=== PATIENT | female | born 1990 | race Caucasian/White ===

== ENCOUNTER 2016-07-28 20:56 | Emergency (ER) | payer MEDICAID ==
[~2016-07-28] VITALS: Ht 157.5 cm; Wt 60.0 kg
[2016-07-28] MEDS ORDERED: PRENATAL VITAMIN (21:04)
[2016-07-28] MEDS ORDERED: ONDANSETRON 2MG/ML, 2ML ONE (21:19)
[2016-07-28] MEDS ORDERED: ONDANSETRON 2MG/ML, 2ML IVPush ONE (21:30)
[2016-07-28] MEDS ORDERED: FAMOTIDINE 20 MG/2 ML IVP ONE (21:30)
[2016-07-28] MEDS ORDERED: SODIUM CHLORIDE 0.9% 1,000ML IVBOLUS ONE (21:30)
[2016-07-28 21:36] LABS: HEMOGLOBIN 13.2 g/dL (11.7-16.4)
[2016-07-28] MEDS ORDERED: PROMETHAZINE 25 MG/ML, 1ML ONE (21:44)
[2016-07-28] MEDS ORDERED: FAMOTIDINE 20 MG/2 ML ONE (21:46)
[2016-07-28 21:49] LABS: ASPARTATE AMINO TRANSFERASE 12 U/L (15-37); BLOOD UREA NITROGEN 5 mg/dL (7-18)
[2016-07-28] MEDS ORDERED: PROMETHAZINE 25 MG/ML, 1ML IM ONE (22:00)
[2016-07-28] MEDS ORDERED: ACETAMINOPHEN 325 MG TABLET ONE (22:32)
[2016-07-28] MEDS ORDERED: ACETAMINOPHEN 325 MG TABLET PO ONE (23:00)
[2016-07-28] MEDS ORDERED: MORPHINE SULFATE 4 MG/ML, 1ML ONE (23:47)
[2016-07-28 23:57] VITALS: BP 100/62
[2016-07-29] MEDS ORDERED: morphine SULFATE 10 MG/ML, 1ML IVPush ONE
== END 2016-07-29 00:45 | disposition home or self-care (01) ==
LOC: ED 23:54
DX: O99.611 Diseases of the digestive system complicating pregnancy, first trimester (principal); Z3A.09 9 weeks gestation of pregnancy; R11.2 Nausea with vomiting, unspecified
CPT/HCPCS: 36415; 76700; 76801; 80053; 81003; 83690; 84702; 85025; 96361; 96372; 96374; 96375; 99285; J2270; J2405; J2550; J7030; S0028

== ENCOUNTER 2016-10-19 17:56 | Observation (INO) | payer OTHER, MEDICAID ==
[~2016-10-19] VITALS: Ht 157.5 cm; Wt 56.0 kg
[~2016-10-19 17:56] MED LIST: PRENATAL VITAMIN
[2016-10-19] MEDS ORDERED: HYDROcodone/APAP 5/325 TABLET ONE (19:28)
[2016-10-19] MEDS ORDERED: ONDANSETRON ODT 4 MG ONE (19:28)
[2016-10-19] MEDS ORDERED: ONDANSETRON 4 MG TABLET PO ONE (19:30)
[2016-10-19] MEDS ORDERED: HYDROcodone/APAP 5/325 TABLET PO ONE (19:30)
[2016-10-19] MEDS ORDERED: PLEASE ENTER HEIGHT AND WEIGHT MC SCH (20:00)
[2016-10-19 20:09] LABS: BLOOD UREA NITROGEN 5 mg/dL (7-18)
[2016-10-19 20:13] LABS: ASPARTATE AMINO TRANSFERASE 17 U/L (15-37)
[2016-10-19] MEDS ORDERED: KETOROLAC 30 MG/1 ML ONE (20:52)
[2016-10-19] MEDS ORDERED: KETOROLAC 30 MG/1 ML IVPush ONE (21:00)
[2016-10-19] MEDS ORDERED: D5%-LACTATED RINGERS 1,000 ML IV SCH (21:00)
== END 2016-10-19 22:42 | disposition home or self-care (01) ==
LOC: LDOP 17:56 → LDIP 20:46
PROVIDERS: ADMIT Student in an Organized Health Care Education/Training Program; ATTEND Student in an Organized Health Care Education/Training Program
DX: O26.892 Other specified pregnancy related conditions, second trimester (principal); R10.9 Unspecified abdominal pain; M54.9 Dorsalgia, unspecified; Z3A.21 21 weeks gestation of pregnancy
CPT/HCPCS: 36415; 59025; 76770; 76805; 80053; 81001; 85025; 87086; 96361; 96374; 99211; G0378; J1885; Q0162; 96360; 96375; G0463; J7121

== ENCOUNTER → 2016-12-04 | Outpatient (CLI) | payer OTHER, MEDICAID ==
[2016-12-04 15:56] LABS: HEMATOCRIT 35.7 % (34.6-47.8); HEMOGLOBIN 11.6 g/dL (11.7-16.4); WHITE BLOOD COUNT 8.8 x10^3/uL (3.4-10)
== END | disposition home or self-care (01) ==
LOC: LAB 11:44
PROVIDERS: ATTEND Student in an Organized Health Care Education/Training Program
DX: Z34.82 Encounter for supervision of other normal pregnancy, second trimester (principal)
CPT/HCPCS: 36415; 82950; 85025

== ENCOUNTER 2017-02-23 03:42 | Inpatient (IN) | payer OTHER ==
[~2017-02-23] VITALS: Ht 157.5 cm; Wt 61.8 kg
[~2017-02-23 03:42] MED LIST changes: +FERR324T5 PO; +PREN1TAB60 PO
[2017-02-23] MEDS ORDERED: OXYTOCIN 30U/ 0.9% NaCL 500ML 500 ML IV ONE (03:47)
[2017-02-23] MEDS ORDERED: NEWBORN KIT ONE (03:49)
[2017-02-23] MEDS ORDERED: OXYTOCIN 30U/ 0.9% NaCL 500ML 500 ML ONE (03:50)
[2017-02-23] MEDS: LACTATED RINGERS 1,000 ML IV SCH ×4 (03:55→11:24)
[2017-02-23] MEDS ORDERED: FENTANYL PF 100 MCG/2ML ONE (03:58)
[2017-02-23 04:00] VITALS: BP 112/74
[2017-02-23] MEDS ORDERED: ONDANSETRON 2MG/ML, 2ML ONE ×2 (04:00→09:55)
[2017-02-23] MEDS ORDERED: FENTANYL PF 100 MCG/2ML IV PRN (04:00)
[2017-02-23] MEDS ORDERED: FENTANYL PF 100 MCG/2ML IVPush PRN (04:00)
[2017-02-23] MEDS ORDERED: TERBUTALINE 1 MG/ML, 1ML IVPush PRN (04:00)
[2017-02-23] MEDS: ONDANSETRON 2MG/ML, 2ML IVPush PRN ×2 (04:00→09:57)
[2017-02-23 04:50] LABS: HEMATOCRIT 34.1 % (34.6-47.8); HEMOGLOBIN 11.6 g/dL (11.7-16.4); WHITE BLOOD COUNT 9.5 x10^3/uL (3.4-10)
[2017-02-23] MEDS ORDERED: FENTANYL/BUPIV./NS/PF 250 ML EPIDCONT ONE ×2 (05:10→05:25)
[2017-02-23] MEDS ORDERED: LIDOCAINE/PF 1.5%-EPI 1:200K, 30ML ONE (05:10)
[2017-02-23] MEDS ORDERED: FENTANYL/BUPIV./NS/PF 250 ML EPIDCONT SCH (05:32)
[2017-02-23] MEDS ORDERED: LACTATED RINGERS 1,000 ML IVBOLUS PRN (06:00)
[2017-02-23] MEDS ORDERED: OXYTOCIN 30U/ 0.9% NaCL 500ML 500 ML IV PRN (08:57)
[2017-02-23] MEDS ORDERED: OXYTOCIN 30U/ 0.9% NaCL 500ML 500 ML IV SCH (12:07)
[2017-02-23] MEDS ORDERED: METHYLERGONOVINE 0.2 MG/ML IM ONE (12:08)
[2017-02-23] MEDS ORDERED: MISOPROSTOL 200 MCG TABLET PR PRN (12:30)
[2017-02-23] MEDS ORDERED: IBUPROFEN 800 MG TABLET PO PRN (12:30)
[2017-02-23] MEDS ORDERED: ONDANSETRON 2MG/ML, 2ML IV PRN (12:30)
[2017-02-23] MEDS ORDERED: OXYcodone/APAP 5/325MG TABLET PO PRN ×2 (12:30)
[2017-02-23] MEDS ORDERED: GLYCERIN ADULT SUPP PR PRN (12:30)
[2017-02-23] MEDS ORDERED: DOCUSATE 100 MG CAPSULE PO PRN (12:30)
[2017-02-23] MEDS ORDERED: ACETAMINOPHEN 325 MG TABLET PO PRN (12:30)
[2017-02-23] MEDS ORDERED: BISACODYL 10 MG SUPP PR PRN (12:30)
[2017-02-23] MEDS ORDERED: METOCLOPRAMIDE 5 MG/ML, 2ML IV PRN (12:30)
[2017-02-23] MEDS ORDERED: METHYLERGONOVINE 0.2 MG/ML IM PRN (12:30)
[2017-02-23] MEDS ORDERED: IBUPROFEN 600 MG TABLET ONE (13:35)
[2017-02-23] MEDS: IBUPROFEN 600 MG TABLET PO PRN ×2 (13:38→20:40)
[2017-02-23 14:05] VITALS: BP 115/80
[2017-02-23 19:35] LABS: HEMATOCRIT 34.1 % (34.6-47.8); HEMOGLOBIN 11.6 g/dL (11.7-16.4); WHITE BLOOD COUNT 12.7 x10^3/uL (3.4-10)
[2017-02-23 19:58] VITALS: BP 107/67
[2017-02-24 00:30] VITALS: BP 100/55
[2017-02-24] MEDS: IBUPROFEN 600 MG TABLET PO PRN ×2 (05:34→13:39)
[2017-02-24 07:20] VITALS: BP 96/52
[2017-02-24] MEDS ORDERED: PRENATAL VIT/IRON/FA 1 EACH TABLET PO SCH (09:00)
[2017-02-24] MEDS ORDERED: ibupro (12:12)
[2017-02-24] MEDS ORDERED: OXYC-302 PO (12:13)
[2017-02-24] MEDS ORDERED: IBUP-1223 PO (12:13)
== END 2017-02-24 14:41 | disposition home or self-care (01) | DRG 775 ==
LOC: LDOP 03:42 → LDIP 03:55 → 2NW 14:05
PROVIDERS: ADMIT Student in an Organized Health Care Education/Training Program; ATTEND Student in an Organized Health Care Education/Training Program
PROC: 3E0R3BZ Introduction of Anesthetic Agent into Spinal Canal, Percutaneous Approach (ICD-10-PCS; principal; 2017-02-24)
PROC: 10E0XZZ Delivery of Products of Conception, External Approach (ICD-10-PCS; 2017-02-24)
PROC: 00HU33Z Insertion of Infusion Device into Spinal Canal, Percutaneous Approach (ICD-10-PCS; 2017-02-24)
PROC: 10907ZC Drainage of Amniotic Fluid, Therapeutic from Products of Conception, Via Natural or Artificial Opening (ICD-10-PCS; 2017-02-24)
DX: O80 Encounter for full-term uncomplicated delivery (principal); G43.909 Migraine, unspecified, not intractable, without status migrainosus; Z37.0 Single live birth; Z3A.39 39 weeks gestation of pregnancy; Z83.3 Family history of diabetes mellitus; Z82.49 Family history of ischemic heart disease and other diseases of the circulatory system
CPT/HCPCS: 36415; 85025; 86850; 86900; J2405; J3010; J3490; J2210; J2590; J7120

== ENCOUNTER → 2018-04-02 | Outpatient (CLI) | payer OTHER ==
[~2018-04-02] MED LIST changes: +IBUP-1223 PO; +OXYC-302 PO; +ibupro
[2018-04-02 08:34] LABS: BASOPHILS # (AUTO) 0.02 x10^3/uL (0-0.1); BASOPHILS % (AUTO) 0 % (0-1); EOSINOPHILS # (AUTO) 0.03 x10^3/uL (0-0.4); EOSINOPHILS % (AUTO) 0 % (1-7); LYMPHOCYTES # (AUTO) 2.22 x10^3/uL (1-3.4); LYMPHOCYTES % (AUTO) 27 % (22-44); MD NO; MEAN CORPUSCULAR HEMOGLOBIN 30.9 pg (27.0-34.8); MEAN CORPUSCULAR HGB CONC 33.6 g/dL (32.4-35.8); MEAN CORPUSCULAR VOLUME 92.1 fL (80-100); MONOCYTES # (AUTO) 0.56 x10^3/uL (0.2-0.8); MONOCYTES % (AUTO) 7 % (2-9); NEUTROPHILS # (AUTO) 5.51 x10^3/uL (1.8-6.8); NEUTROPHILS % (AUTO) 66 % (42-75); PLATELET COUNT 199 x10^3/uL (130-400); RED BLOOD COUNT 4.48 x10^6/uL (3.82-5.3); RED CELL DISTRIBUTION WIDTH 13.4 % (9.6-15.2)
[2018-04-02 08:37] LABS: ALBUMIN 4.2 g/dL (3.4-5.0); ANION GAP 6 mmol/L (5-15); CALCIUM 9.3 mg/dL (8.5-10.1); CHLORIDE 107 mmol/L (98-107); CHOLESTEROL, TOTAL 187 mg/dL (140-239)
[2018-04-02 08:55] LABS: % IRON SATURATION 60 % (20-55); ALANINE AMINOTRANSFERASE 23 U/L (12-78); ALKALINE PHOSPHATASE 95 U/L (45-117); BILIRUBIN,TOTAL 0.8 mg/dL (0.2-1.0); CREATININE 0.78 mg/dL (0.55-1.02); HDL CHOL % 25 % (28-40); HDL CHOLESTEROL (DIRECT) 47 mg/dL (40-60); IRON LEVEL 203 mcg/dL (50-170); TOTAL IRON BINDING CAPACITY 339 mcg/dL (250-450); TOTAL PROTEIN 8.2 g/dL (6.4-8.2); TRANSFERRIN 299 mg/dL (200-360); TRIGLYCERIDES 105 mg/dL (50-200); VLDL CHOLESTEROL 21 mg/dL (0-25)
[2018-04-02 08:56] LABS: FREE T4 (FREE THYROXINE) 1.02 ng/dL (0.76-1.46); LDL CHOLESTEROL,CALCULATED 119 mg/dL (54-169); LDL/HDL RATIO 2.5 (0.5-3.0)
[2018-04-02 09:08] LABS: FOLATE LEVEL > 20.0 ng/mL (3.1-17.5)
== END | disposition home or self-care (01) ==
LOC: CFH 07:26
PROVIDERS: ATTEND Nurse Practitioner Primary Care
DX: Z00.00 Encounter for general adult medical examination without abnormal findings (principal); Z12.4 Encounter for screening for malignant neoplasm of cervix; Z13.820 Encounter for screening for osteoporosis; R53.83 Other fatigue; R42 Dizziness and giddiness; D64.9 Anemia, unspecified; G56.00 Carpal tunnel syndrome, unspecified upper limb
CPT/HCPCS: 36415; 80053; 80061; 82306; 82607; 82728; 82746; 83540; 83550; 83735; 84207; 84425; 84439; 84443; 84466; 84481; 84702; 85025

== ENCOUNTER 2018-04-07 19:42 | Emergency (ER) | payer OTHER ==
[~2018-04-07] VITALS: Ht 157.5 cm; Wt 55.0 kg
[2018-04-07 19:52] VITALS: BP 149/62
[2018-04-07] MEDS ORDERED: ONDANSETRON ODT 4 MG PO ONE ×2 (20:00→20:30)
[2018-04-07] MEDS ORDERED: ACETAMINOPHEN 500 MG TABLET PO ONE (20:20)
[2018-04-07 20:24] LABS: BASOPHILS # (AUTO) 0.03 x10^3/uL (0-0.1); BASOPHILS % (AUTO) 0 % (0-1); EOSINOPHILS # (AUTO) 0.03 x10^3/uL (0-0.4); EOSINOPHILS % (AUTO) 0 % (1-7); LYMPHOCYTES # (AUTO) 2.34 x10^3/uL (1-3.4); LYMPHOCYTES % (AUTO) 20 % (22-44); MD NO; MEAN CORPUSCULAR HEMOGLOBIN 31.4 pg (27.0-34.8); MEAN CORPUSCULAR HGB CONC 33.9 g/dL (32.4-35.8); MEAN CORPUSCULAR VOLUME 92.5 fL (80-100); MEAN PLATELET VOLUME 10.3 fL (7.4-10.4); MONOCYTES # (AUTO) 0.82 x10^3/uL (0.2-0.8); MONOCYTES % (AUTO) 7 % (2-9); NEUTROPHILS # (AUTO) 8.72 x10^3/uL (1.8-6.8); NEUTROPHILS % (AUTO) 73 % (42-75); PLATELET COUNT 180 x10^3/uL (130-400); RED BLOOD COUNT 4.02 x10^6/uL (3.82-5.3); RED CELL DISTRIBUTION WIDTH 13.3 % (9.6-15.2)
[2018-04-07 20:30] LABS: ALANINE AMINOTRANSFERASE 22 U/L (12-78); ALBUMIN 3.6 g/dL (3.4-5.0); ANION GAP 9 mmol/L (5-15); CALCIUM 8.8 mg/dL (8.5-10.1); CHLORIDE 109 mmol/L (98-107); CREATININE 0.76 mg/dL (0.55-1.02)
[2018-04-07] MEDS ORDERED: ONDANSETRON ODT 4 MG ONE (20:32)
[2018-04-07] MEDS ORDERED: ACETAMINOPHEN 500 MG TABLET ONE (20:33)
[2018-04-07 20:49] LABS: ALKALINE PHOSPHATASE 87 U/L (45-117); BILIRUBIN,TOTAL 0.2 mg/dL (0.2-1.0); TOTAL PROTEIN 7.3 g/dL (6.4-8.2)
[2018-04-07 20:57] LABS: CULTURE INDICATED? YES; MICROSCOPIC INDICATED
[2018-04-07 21:59] LABS: MICROSCOPIC NOT IND
[2018-04-07 22:02] LABS: CULTURE INDICATED? NO
== END 2018-04-07 22:28 | disposition home or self-care (01) ==
LOC: ED 21:43
DX: O9A.211 Injury, poisoning and certain other consequences of external causes complicating pregnancy, first trimester (principal); S00.81XA Abrasion of other part of head, initial encounter; Y04.0XXA Assault by unarmed brawl or fight, initial encounter; Y93.89 Activity, other specified; Y92.098 Other place in other non-institutional residence as the place of occurrence of the external cause; Y99.8 Other external cause status; Z3A.01 Less than 8 weeks gestation of pregnancy
CPT/HCPCS: 36415; 70450; 76801; 80053; 81001; 81003; 84702; 85025; 87086; 99284; Q0162

== ENCOUNTER → 2018-04-23 | Outpatient (CLI) | payer OTHER ==
[2018-04-23 12:40] LABS: BASOPHILS # (AUTO) 0.02 x10^3/uL (0-0.1); BASOPHILS % (AUTO) 0 % (0-1); EOSINOPHILS # (AUTO) 0.05 x10^3/uL (0-0.4); EOSINOPHILS % (AUTO) 1 % (1-7); LYMPHOCYTES # (AUTO) 1.58 x10^3/uL (1-3.4); LYMPHOCYTES % (AUTO) 22 % (22-44); MD NO; MEAN CORPUSCULAR HEMOGLOBIN 31.8 pg (27.0-34.8); MEAN CORPUSCULAR HGB CONC 33.9 g/dL (32.4-35.8); MEAN CORPUSCULAR VOLUME 93.9 fL (80-100); MEAN PLATELET VOLUME 11.2 fL (7.4-10.4); MONOCYTES # (AUTO) 0.47 x10^3/uL (0.2-0.8); MONOCYTES % (AUTO) 6 % (2-9); NEUTROPHILS # (AUTO) 5.23 x10^3/uL (1.8-6.8); NEUTROPHILS % (AUTO) 71 % (42-75); PLATELET COUNT 163 x10^3/uL (130-400); RED BLOOD COUNT 4.07 x10^6/uL (3.82-5.3); RED CELL DISTRIBUTION WIDTH 13.5 % (9.6-15.2)
[2018-04-23 13:22] LABS: MICROSCOPIC NOT IND
[2018-04-23 13:26] LABS: CULTURE INDICATED? NO
== END | disposition home or self-care (01) ==
LOC: CFH 07:17
PROVIDERS: ATTEND Student in an Organized Health Care Education/Training Program
DX: Z34.82 Encounter for supervision of other normal pregnancy, second trimester (principal); Z3A.00 Weeks of gestation of pregnancy not specified
CPT/HCPCS: 36415; 81003; 85025; 86592; 86762; 86787; 86850; 86900; 87340; 87806; G0475

== ENCOUNTER 2018-09-30 06:36 | Observation (INO) | payer SELFPAY ==
[~2018-09-30] VITALS: Ht 157.5 cm; Wt 60.0 kg
[2018-09-30 07:07] VITALS: BP 110/70
[2018-09-30] MEDS ORDERED: HYDROcodone/APAP 10/325 MG TABLET PO PRN (07:30)
[2018-09-30] MEDS ORDERED: HYDROcodone/APAP 10/325 MG TABLET ONE (07:32)
[2018-09-30 07:34] LABS: CULTURE INDICATED? NO; MICROSCOPIC NOT IND
[2018-09-30 08:04] LABS: BASOPHILS % (AUTO) 0 % (0-1); EOSINOPHILS # (AUTO) 0.02 x10^3/uL (0-0.4); EOSINOPHILS % (AUTO) 0 % (1-7); LYMPHOCYTES # (AUTO) 0.76 x10^3/uL (1-3.4); LYMPHOCYTES % (AUTO) 9 % (22-44); MD NO; MEAN CORPUSCULAR HEMOGLOBIN 30.7 pg (27.0-34.8); MEAN CORPUSCULAR VOLUME 93.1 fL (80-100); MEAN PLATELET VOLUME 9.8 fL (7.4-10.4); MONOCYTES % (AUTO) 8 % (2-9); NEUTROPHILS # (AUTO) 6.95 x10^3/uL (1.8-6.8); NEUTROPHILS % (AUTO) 83 % (42-75); PLATELET COUNT 130 x10^3/uL (130-400); RED BLOOD COUNT 3.71 x10^6/uL (3.82-5.3); RED CELL DISTRIBUTION WIDTH 12.6 % (9.6-15.2)
[2018-09-30 08:17] LABS: ALBUMIN 2.6 g/dL (3.4-5.0); ANION GAP 5 mmol/L (5-15); CALCIUM 8.1 mg/dL (8.5-10.1); CHLORIDE 111 mmol/L (98-107); CREATININE 0.51 mg/dL (0.55-1.02)
[2018-09-30 08:20] LABS: ALANINE AMINOTRANSFERASE 12 U/L (12-78); ALKALINE PHOSPHATASE 119 U/L (45-117); BILIRUBIN,TOTAL 0.4 mg/dL (0.2-1.0); TOTAL PROTEIN 6.5 g/dL (6.4-8.2)
== END 2018-09-30 11:56 | disposition home or self-care (01) ==
LOC: LDOP 06:36 → LDIP 07:30
PROVIDERS: ADMIT Student in an Organized Health Care Education/Training Program; ATTEND Student in an Organized Health Care Education/Training Program
DX: O26.893 Other specified pregnancy related conditions, third trimester (principal); R10.9 Unspecified abdominal pain; M54.9 Dorsalgia, unspecified; Z3A.31 31 weeks gestation of pregnancy
CPT/HCPCS: 36415; 76770; 76815; 80053; 81003; 85025; G0378; 59025; 99211; G0463

== ENCOUNTER 2018-10-15 14:18 | Outpatient (CLI) | payer SELFPAY ==
[~2018-10-15] VITALS: Ht 157.5 cm; Wt 56.3 kg
[2018-10-15 14:26] VITALS: BP 108/64
[2018-10-15 14:55] LABS: MICROSCOPIC NOT IND
[2018-10-15 17:02] LABS: BASOPHILS # (AUTO) 0.03 x10^3/uL (0-0.1); BASOPHILS % (AUTO) 0 % (0-1); EOSINOPHILS # (AUTO) 0.04 x10^3/uL (0-0.4); EOSINOPHILS % (AUTO) 1 % (1-7); LYMPHOCYTES # (AUTO) 1.82 x10^3/uL (1-3.4); LYMPHOCYTES % (AUTO) 24 % (22-44); MD NO; MEAN CORPUSCULAR HEMOGLOBIN 30.9 pg (27.0-34.8); MEAN CORPUSCULAR HGB CONC 33.1 g/dL (32.4-35.8); MEAN CORPUSCULAR VOLUME 93.3 fL (80-100); MEAN PLATELET VOLUME 10.2 fL (7.4-10.4); MONOCYTES # (AUTO) 0.65 x10^3/uL (0.2-0.8); MONOCYTES % (AUTO) 9 % (2-9); NEUTROPHILS % (AUTO) 67 % (42-75); PLATELET COUNT 162 x10^3/uL (130-400); RED BLOOD COUNT 3.38 x10^6/uL (3.82-5.3); RED CELL DISTRIBUTION WIDTH 12.9 % (9.6-15.2)
[2018-10-15 17:07] LABS: ALBUMIN 2.5 g/dL (3.4-5.0); ANION GAP 5 mmol/L (5-15); CALCIUM 8.2 mg/dL (8.5-10.1); CHLORIDE 109 mmol/L (98-107)
[2018-10-15 17:10] LABS: ALANINE AMINOTRANSFERASE 12 U/L (12-78); ALKALINE PHOSPHATASE 117 U/L (45-117); BILIRUBIN,TOTAL 0.5 mg/dL (0.2-1.0); CREATININE 0.57 mg/dL (0.55-1.02); TOTAL PROTEIN 6.3 g/dL (6.4-8.2)
== END 2018-10-15 18:00 | disposition home or self-care (01) ==
LOC: LDOP 14:18
PROVIDERS: ATTEND Student in an Organized Health Care Education/Training Program
DX: O62.9 Abnormality of forces of labor, unspecified (principal); O26.893 Other specified pregnancy related conditions, third trimester; R03.1 Nonspecific low blood-pressure reading; Z3A.33 33 weeks gestation of pregnancy; Z88.8 Allergy status to other drugs, medicaments and biological substances
CPT/HCPCS: 59025; 76815; 80053; 81003; 85025; 87086; 93005; 99211; G0463

== ENCOUNTER 2018-11-24 05:33 | Inpatient (IN) | payer MEDICAID, OTHER ==
[~2018-11-24] VITALS: Ht 157.5 cm; Wt 62.0 kg
[2018-11-24] MEDS ORDERED: OXYTOCIN 30U/ 0.9% NaCL 500ML 500 ML IV PRN (06:13)
[2018-11-24] MEDS ORDERED: OXYTOCIN 30U/ 0.9% NaCL 500ML 500 ML IV ONE (06:13)
[2018-11-24] MEDS ORDERED: METOCLOPRAMIDE 5 MG/ML, 2ML IVPush PRN (06:30)
[2018-11-24] MEDS ORDERED: FENTANYL PF 100 MCG/2ML IV PRN (06:30)
[2018-11-24] MEDS ORDERED: SODIUM CITRATE/CITRIC ACID 15 ML UDC PO PRN (06:30)
[2018-11-24] MEDS ORDERED: TERBUTALINE 1 MG/ML, 1ML IVPush PRN (06:30)
[2018-11-24] MEDS ORDERED: FENTANYL PF 100 MCG/2ML IVPush PRN (06:30)
[2018-11-24] MEDS ORDERED: PLEASE ENTER HEIGHT AND WEIGHT MC SCH (07:00)
[2018-11-24 07:01] LABS: BASOPHILS # (AUTO) 0.01 x10^3/uL (0-0.1); BASOPHILS % (AUTO) 0 % (0-1); EOSINOPHILS # (AUTO) 0.03 x10^3/uL (0-0.4); EOSINOPHILS % (AUTO) 0 % (1-7); LYMPHOCYTES # (AUTO) 1.59 x10^3/uL (1-3.4); LYMPHOCYTES % (AUTO) 22 % (22-44); MD NO; MEAN CORPUSCULAR HGB CONC 32.5 g/dL (32.4-35.8); MEAN CORPUSCULAR VOLUME 89.3 fL (80-100); MEAN PLATELET VOLUME 10.7 fL (7.4-10.4); MONOCYTES # (AUTO) 0.59 x10^3/uL (0.2-0.8); MONOCYTES % (AUTO) 8 % (2-9); NEUTROPHILS # (AUTO) 4.89 x10^3/uL (1.8-6.8); NEUTROPHILS % (AUTO) 69 % (42-75); PLATELET COUNT 133 x10^3/uL (130-400); RED BLOOD COUNT 3.51 x10^6/uL (3.82-5.3); RED CELL DISTRIBUTION WIDTH 13.7 % (9.6-15.2)
[2018-11-24] MEDS ORDERED: FENTANYL/BUPIV./NS/PF 250 ML EPIDCONT SCH ×2 (07:09→10:31)
[2018-11-24] MEDS: LACTATED RINGERS 1,000 ML IV SCH ×4 (07:18→19:37)
[2018-11-24] MEDS ORDERED: NEWBORN KIT ONE (07:26)
[2018-11-24] MEDS ORDERED: MISOPROSTOL 200 MCG TABLET ONE (07:27)
[2018-11-24] MEDS ORDERED: OXYTOCIN 30U/ 0.9% NaCL 500ML 500 ML ONE ×2 (07:27→14:52)
[2018-11-24] MEDS ORDERED: EPHEDRINE 50 MG/ML, 1ML IVPush PRN ×2 (07:30→11:00)
[2018-11-24] MEDS ORDERED: LACTATED RINGERS 1,000 ML IVBOLUS PRN ×2 (07:30→11:00)
[2018-11-24] MEDS ORDERED: FENTANYL PF 500 MCG, BUPIVACAINE/PF 0.5%, 30ML 62.5 ML in SODIUM CHLORIDE 0.9% 177.5 ML EPIDCONT SCH (08:00)
[2018-11-24] MEDS ORDERED: LACTATED RINGERS 1,000 ML IV SCH (10:31)
[2018-11-24] MEDS ORDERED: NALOXONE 0.4 MG/ML, 1ML IVPush PRN (11:00)
[2018-11-24] MEDS ORDERED: METOCLOPRAMIDE 5 MG/ML, 2ML IV PRN (14:00)
[2018-11-24] MEDS ORDERED: GLYCERIN ADULT SUPP PR PRN (14:00)
[2018-11-24] MEDS ORDERED: CARBOPROST TROMETHAMINE 250 MCG/ML, 1ML IM PRN (14:00)
[2018-11-24] MEDS ORDERED: BISACODYL 10 MG SUPP PR PRN (14:00)
[2018-11-24] MEDS ORDERED: OXYcodone/APAP 5/325MG TABLET PO PRN (14:00)
[2018-11-24] MEDS ORDERED: ONDANSETRON 2MG/ML, 2ML IV PRN (14:00)
[2018-11-24] MEDS ORDERED: DOCUSATE 100 MG CAPSULE PO PRN (14:00)
[2018-11-24] MEDS ORDERED: MISOPROSTOL 200 MCG TABLET PR PRN (14:00)
[2018-11-24] MEDS ORDERED: METHYLERGONOVINE 0.2 MG/ML IM PRN (14:00)
[2018-11-24] MEDS ORDERED: ACETAMINOPHEN 325 MG TABLET PO PRN (14:00)
[2018-11-24] MEDS ORDERED: IBUPROFEN 600 MG TABLET ONE (14:52)
[2018-11-24] MEDS: OXYTOCIN 30U/ 0.9% NaCL 500ML 500 ML IV SCH ×2 (14:54→21:16)
[2018-11-24] MEDS: IBUPROFEN 600 MG TABLET PO PRN (14:54)
[2018-11-24] MEDS ORDERED: OXYcodone/APAP 5/325MG TABLET ONE (15:26)
[2018-11-24] MEDS: OXYcodone/APAP 5/325MG TABLET PO PRN (15:28)
[2018-11-24 16:00] VITALS: BP 99/59
[2018-11-24] MEDS: D5%-LACTATED RINGERS 1,000 ML IV SCH (19:35)
[2018-11-24 19:55] VITALS: BP 94/56
[2018-11-24 21:32] LABS: BASOPHILS # (AUTO) 0.02 x10^3/uL (0-0.1); BASOPHILS % (AUTO) 0 % (0-1); EOSINOPHILS # (AUTO) 0.11 x10^3/uL (0-0.4); EOSINOPHILS % (AUTO) 1 % (1-7); LYMPHOCYTES # (AUTO) 1.65 x10^3/uL (1-3.4); LYMPHOCYTES % (AUTO) 19 % (22-44); MD NO; MEAN CORPUSCULAR HEMOGLOBIN 29.5 pg (27.0-34.8); MEAN CORPUSCULAR HGB CONC 32.4 g/dL (32.4-35.8); MEAN PLATELET VOLUME 11.3 fL (7.4-10.4); MONOCYTES # (AUTO) 0.77 x10^3/uL (0.2-0.8); MONOCYTES % (AUTO) 9 % (2-9); NEUTROPHILS # (AUTO) 6.03 x10^3/uL (1.8-6.8); NEUTROPHILS % (AUTO) 70 % (42-75); PLATELET COUNT 115 x10^3/uL (130-400); RED BLOOD COUNT 3.23 x10^6/uL (3.82-5.3); RED CELL DISTRIBUTION WIDTH 13.4 % (9.6-15.2)
[2018-11-25 00:05] VITALS: BP 107/69
[2018-11-25] MEDS: OXYcodone/APAP 5/325MG TABLET PO PRN ×2 (02:37→11:12)
[2018-11-25] MEDS: IBUPROFEN 600 MG TABLET PO PRN ×2 (02:37→08:01)
[2018-11-25 04:07] VITALS: BP 102/58
[2018-11-25 07:55] VITALS: BP 92/55
[2018-11-25] MEDS ORDERED: PRENATAL VIT/IRON/FA 1 EACH TABLET PO SCH (09:00)
[2018-11-25] MEDS: OXYTOCIN 30U/ 0.9% NaCL 500ML 500 ML IV SCH ×2 (09:44→12:55)
[2018-11-25] MEDS ORDERED: HYDR-3240 PO (13:06)
[2018-11-25] MEDS ORDERED: IBUP200T49 PO (13:06)
[2018-11-25] MEDS ORDERED: FERR325T23 PO (13:08)
== END 2018-11-25 15:57 | disposition home or self-care (01) | DRG 560 ==
LOC: UNDOADMIN 05:33 → LDIP 05:33 → UNDOADMIN 13:30 → NSY 13:30 → 2NW 15:31
PROVIDERS: ADMIT Student in an Organized Health Care Education/Training Program; ATTEND Student in an Organized Health Care Education/Training Program
PROC: 10E0XZZ Delivery of Products of Conception, External Approach (ICD-10-PCS; principal; 2018-11-24)
PROC: 3E0R3BZ Introduction of Anesthetic Agent into Spinal Canal, Percutaneous Approach (ICD-10-PCS; 2018-11-24)
PROC: 00HU33Z Insertion of Infusion Device into Spinal Canal, Percutaneous Approach (ICD-10-PCS; 2018-11-24)
PROC: 10907ZC Drainage of Amniotic Fluid, Therapeutic from Products of Conception, Via Natural or Artificial Opening (ICD-10-PCS; 2018-11-24)
DX: O99.354 Diseases of the nervous system complicating childbirth (principal); D62 Acute posthemorrhagic anemia; Z37.0 Single live birth; Z3A.39 39 weeks gestation of pregnancy; Z83.3 Family history of diabetes mellitus; G43.909 Migraine, unspecified, not intractable, without status migrainosus; O90.81 Anemia of the puerperium
CPT/HCPCS: 36415; 85025; 86850; 86900; G0378; J3010; J2590; J7050; J7120

== ENCOUNTER 2019-03-06 08:11 | Emergency (ER) | payer OTHER ==
[~2019-03-06] VITALS: Ht 157.5 cm; Wt 57.0 kg
[~2019-03-06 08:11] MED LIST changes: +FERR325T23 PO; +HYDR-3240 PO; +IBUP200T49 PO
[2019-03-06 08:22] VITALS: BP 108/69
[2019-03-06] MEDS ORDERED: ONDANSETRON 2MG/ML, 2ML IVPush ONE (09:00)
[2019-03-06] MEDS ORDERED: MORPHINE SULFATE 4 MG/ML, 1ML ONE (09:19)
[2019-03-06] MEDS ORDERED: ONDANSETRON 2MG/ML, 2ML ONE (09:19)
[2019-03-06] MEDS: MORPHINE SULFATE 4 MG/ML, 1ML IVPush PRN ×2 (09:30→10:11)
[2019-03-06 09:44] LABS: BASOPHILS # (AUTO) 0.02 x10^3/uL (0-0.1); BASOPHILS % (AUTO) 0 % (0-1); EOSINOPHILS # (AUTO) 0.07 x10^3/uL (0-0.4); EOSINOPHILS % (AUTO) 1 % (1-7); LYMPHOCYTES # (AUTO) 1.05 x10^3/uL (1-3.4); LYMPHOCYTES % (AUTO) 16 % (22-44); MD NO; MEAN CORPUSCULAR HEMOGLOBIN 30.1 pg (27.0-34.8); MEAN CORPUSCULAR HGB CONC 33.1 g/dL (32.4-35.8); MEAN PLATELET VOLUME 9.9 fL (7.4-10.4); MONOCYTES # (AUTO) 0.53 x10^3/uL (0.2-0.8); MONOCYTES % (AUTO) 8 % (2-9); NEUTROPHILS % (AUTO) 74 % (42-75); PLATELET COUNT 187 x10^3/uL (130-400); RED BLOOD COUNT 4.26 x10^6/uL (3.82-5.3); RED CELL DISTRIBUTION WIDTH 15.7 % (9.6-15.2)
[2019-03-06 09:56] LABS: ALANINE AMINOTRANSFERASE 68 U/L (12-78); ALBUMIN 3.7 g/dL (3.4-5.0); ANION GAP 6 mmol/L (5-15); CALCIUM 8.6 mg/dL (8.5-10.1); CHLORIDE 109 mmol/L (98-107); CREATININE 0.72 mg/dL (0.55-1.02)
[2019-03-06 10:00] LABS: ALKALINE PHOSPHATASE 124 U/L (45-117); BILIRUBIN,TOTAL 0.4 mg/dL (0.2-1.0); TOTAL PROTEIN 7.6 g/dL (6.4-8.2)
[2019-03-06] MEDS ORDERED: SODIUM CHLORIDE FLUSH 10ML SYR IVF ONE (10:00)
--- NOTE | 2019-03-06 10:03 | NUR ---
PT C/O LEFT SIDED FACIAL WEAKNESS AND TINGLING, AND INABILITY TO FULLY OPEN HER LEFT EYE, A 10/10 HEADACHE, AND N/V. PT ATTACHED TO MONITORS. REQUESTING THIS NURSE TO CALL HER BF AND LET HIM KNOW SHE IS HERE. DENIES ANY OTHER NEEDS OR CONCERNS AT THIS TIME. PROVIDED WITH WARM BLANKETS, CALL LIGHT IN REACH.
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
[2019-03-06] MEDS ORDERED: KETOROLAC 30 MG/1 ML ONE (10:52)
[2019-03-06] MEDS ORDERED: KETOROLAC 30 MG/1 ML IVPush ONE (11:00)
== END 2019-03-06 11:15 | disposition home or self-care (01) ==
LOC: ED 09:19
DX: G43.019 Migraine without aura, intractable, without status migrainosus (principal)
CPT/HCPCS: 36415; 70450; 80053; 84703; 85025; 96374; 96375; 96376; 99284; J1885; J2270; J2405